=== PATIENT | male | born 1975 | race Two or more races ===

== ENCOUNTER 2016-07-09 13:15 | Emergency (ER) | payer SELFPAY ==
--- NOTE | 2016-07-09 14:16 | ER Document Report ---
ED Medical Screen (RME) - General Chief Complaint: Chest Congestion Stated Complaint: CHEST PAIN Time seen by provider: 14:15 Mode of Arrival: Wheelchair Information source: Patient TRAVEL OUTSIDE OF THE U.S. IN LAST 30 DAYS: No - HPI Patient complains to provider of: cough, SOB, chest tightness Onset: Other - Friday Quality of pain: Achy Severity: Moderate Pain Level: 3 Associated Symptoms: Body/muscle aches, Chills, Cough (nonproductive), Dizzy/ lightheaded, Shortness of breath Exacerbated by: Denies Relieved by: Denies Similar symptoms previously: Yes Recently seen / treated by doctor: No Notes: 07/09/16 14:16 Patient is a 40-year-old male who smokes cigarettes, presents to the emergency room complaining of chest tightness, cough, shortness of breath, symptoms of been present for the past 4 days, it is been quite sometime since he seen a primary care provider, he is not currently on any medications, patient has h/o HIV - Related Data Smoking: Cigarettes Allergies/Adverse Reactions: No Known Allergies Allergy (Verified 07/09/16 13:34) Past Medical History Renal/ Medical History: Denies: Hx Peritoneal Dialysis GI Medical History: Reports: Hx Hepatitis - Hep C Infectious Medical History: Reports: Hx Hepatitis - Hep C, Hx HIV Physical Exam - Vital signs Vitals: Temp Pulse Resp BP Pulse Ox 98.5 F 53 L 16 119/56 L 99 07/09/16 13:30 07/09/16 13:30 07/09/16 13:30 07/09/16 13:30 07/09/16 13:30 Course - Vital Signs Vital signs: Temp Pulse Resp BP Pulse Ox 98.5 F 53 L 16 119/56 L 99 07/09/16 13:30 07/09/16 13:30 07/09/16 13:30 07/09/16 13:30 07/09/16 13:30
[2016-07-09] MEDS ORDERED: IPRATROPIUM/ALBUTEROL 0.5-2.5 MG/3 ML AMPUL NEB ONE ×2 (14:17→16:53)
[2016-07-09 14:42] LABS: ABSOLUTE BASOPHILS # (AUTO) 0.1 10^3/uL (0.0-0.2); ABSOLUTE EOSINOPHILS # (AUTO) 0.1 10^3/uL (0.0-0.6); ABSOLUTE LYMPHOCYTES (AUTO) 2.3 10^3/uL (0.5-4.7); ABSOLUTE MONOCYTES (AUTO) 0.6 10^3/uL (0.1-1.4); ABSOLUTE NEUT (AUTO) 3.4 10^3/uL (1.7-8.2); BASOPHILS % (AUTO) 0.8 % (0-2); HEMATOCRIT 41.8 % (37.9-51.0); HEMOGLOBIN 14.3 g/dL (13.5-17.0); HGB HCT DIFFERENCE 1.1; LYMPHOCYTES % (AUTO) 35.5 % (13-45); MEAN CORPUSCULAR HEMOGLOBIN 31.6 pg (27.0-33.4); MEAN CORPUSCULAR HGB CONC 34.3 g/dL (32.0-36.0); MEAN CORPUSCULAR VOLUME 92 fl (80-97); MONOCYTES % (AUTO) 9.3 % (3-13); RED BLOOD COUNT 4.54 10^6/uL (4.35-5.55); RED CELL DISTRIBUTION WIDTH 12.9 % (11.5-14.0); SEGMENTED NEUTROPHILS % (AUTO) 52.4 % (42-78); WHITE BLOOD COUNT 6.5 10^3/uL (4.0-10.5)
[2016-07-09 15:04] LABS: ALANINE AMINOTRANSFERASE 32 U/L (21-72); ALBUMIN 4.7 g/dL (3.5-5.0); ALKALINE PHOSPHATASE 69 U/L (38-126); ANION GAP 13 (5-19); ASPARTATE AMINO TRANSFERASE 28 U/L (17-59); BILIRUBIN,DIRECT 0.3 mg/dL (0.0-0.4); BILIRUBIN,TOTAL 0.7 mg/dL (0.2-1.3); BLOOD UREA NITROGEN 15 mg/dL (7-20); CALCIUM 9.6 mg/dL (8.4-10.2); CARBON DIOXIDE 25 mmol/L (22-30); CHLORIDE 104 mmol/L (98-107); CREATINE KINASE 83 U/L (55-170); CREATININE RESULT 0.73 mg/dL (0.52-1.25); GLUCOSE 92 mg/dL (75-110); POTASSIUM 4.5 mmol/L (3.6-5.0); SODIUM 141.5 mmol/L (137-145); TOTAL PROTEIN 8.1 g/dL (6.3-8.2)
[2016-07-09 15:14] LABS: CREATINE KINASE MB 0.9 ng/mL (<4.55); TROPONIN I 0.032 ng/mL
[2016-07-09] MEDS ORDERED: PREDNISONE 20 MG TABLET PO ONE (16:53)
--- NOTE | 2016-07-09 16:59 | ER Document Report ---
ED Respiratory Problem - General Chief Complaint: Chest Congestion Stated Complaint: CHEST PAIN Mode of Arrival: Wheelchair Notes: The patient is a 40-year-old male, past medical history HIV (not on any meds, unknown counts), current tobacco and marijuana smoker, presents with 5 days of increasing dry cough and chest congestion. He said that he was working in a [employer] environment before the symptoms started. He received a DuoNeb at [facility] and says that he feels better already. He is only having chest pain when he coughs. Denies sputum, fevers, rash, nausea, vomiting, current chest pain, leg swelling, abdominal pain or hemoptysis. TRAVEL OUTSIDE OF THE [place].S[place] IN LAST 30 DAYS: No - Related Data Allergies/Adverse Reactions: No Known Allergies Allergy (Verified 07/09/16 13:34) Past Medical History - General Information source: Patient - Social History Smoking Status: Current Every Day Smoker Chew tobacco use (# tins/day): No Frequency of alcohol use: Occasional Drug Abuse: Marijuana Family History: Reviewed & Not Pertinent Patient has suicidal ideation: No Patient has homicidal ideation: No Renal/ Medical History: Denies: Hx Peritoneal Dialysis GI Medical History: Reports: Hx Hepatitis - Hep C Infectious Medical History: Reports: Hx Hepatitis - Hep C, Hx HIV Surgical Hx: Negative - Immunizations Hx Diphtheria, Pertussis, Tetanus Vaccination: No Review of Systems - Review of Systems Notes: REVIEW OF SYSTEMS: CONSTITUTIONAL: -fevers, -chills EENT: -eye pain, -difficulty swallowing, -nasal congestion CARDIOVASCULAR:-chest pain, -syncope. RESPIRATORY: +cough, +SOB GASTROINTESTINAL: -abdominal pain, -nausea, -vomiting, -diarrhea GENITOURINARY: -dysuria, -hematuria MUSCULOSKELETAL: -back pain, -neck pain SKIN: -rash or skin lesions. HEMATOLOGIC: -easy bruising or bleeding. LYMPHATIC: -swollen, enlarged glands. NEUROLOGICAL: -altered mental status or loss of consciousness, -headache, - neurologic symptoms PSYCHIATRIC: -anxiety, -depression. ALL OTHER SYSTEMS REVIEWED AND NEGATIVE. Physical Exam - Vital signs Vitals: Temp Pulse Resp BP Pulse Ox 98.5 F 53 L 16 119/56 L 99 07/09/16 13:30 07/09/16 13:30 07/09/16 13:30 07/09/16 13:30 07/09/16 13:30 - Notes Notes: PHYSICAL EXAMINATION: GENERAL: Well-appearing, well-nourished and in no acute distress. HEAD: Atraumatic, normocephalic. EYES: Pupils equal round and reactive to light, extraocular movements intact, sclera anicteric, conjunctiva are normal. ENT: nares patent, oropharynx clear without exudates. Moist mucous membranes. NECK: Normal range of motion, supple without lymphadenopathy LUNGS: No respiratory distress, mild end-expiratory wheezes HEART: Regular rate and rhythm without murmurs ABDOMEN: Soft, nontender, normoactive bowel sounds. No guarding, no rebound. No masses appreciated. EXTREMITIES: Normal range of motion, no pitting or edema. No cyanosis. NEUROLOGICAL: Cranial nerves grossly intact. Normal speech, normal gait. Normal sensory, motor, and reflex exams. PSYCH: Normal mood, normal affect. SKIN: Warm, Dry, normal turgor, no rashes or lesions noted. Course - Re-evaluation Re-evalutation: Patient appears well and is in no respiratory distress. His chest pain is only occurring when he coughs. EKG shows a peaked T-wave in V2, but his potassium is 4.5. Labs are unremarkable. Spoke to patient about smoking cessation. After DuoNebs and steroids, he feels much better. Will send home with 4 more days of steroids and an albuterol with instructions to follow-up with primary care physician. Given strict return precautions and he understands. - Vital Signs Vital signs: Temp Pulse Resp BP Pulse Ox 98.5 F 53 L 16 119/56 L 99 07/09/16 13:30 07/09/16 13:30 07/09/16 13:30 07/09/16 13:30 07/09/16 13:30 - Laboratory Result Diagrams: 07/09/16 14:12 07/09/16 14:12 - Diagnostic Test Radiology reviewed: Image reviewed, Reports reviewed Radiology results interpreted by me: CXR: NAD - EKG Interpretation by Me EKG shows normal: Sinus rhythm, Climax, Intervals, QRS Complexes, ST-T Waves Rate: Bradycardia Additional EKG results interpreted by me: Peaked T-wave in V2 Discharge - Discharge Clinical Impression: Bronchitis Condition: Good Disposition: HOME, SELF-CARE Additional Instructions: BRONCHITIS: You have acute bronchitis. This disease is an infection or inflammation of the air passageways in your lungs. Symptoms usually include cough, low grade fever, shortness of breath, and wheezing. The cough usually persists for a couple of weeks. Most cases of bronchitis get better without antibiotics. We prescribe antibiotics when we believe bacteria are damaging your airways, or if there's high risk the bronchitis will worsen into pneumonia. Increase your fluid intake. A cool mist humidifier may make your lungs more comfortable. An expectorant (cough medicine that loosens phlegm) can help. If you smoke, STOP!!! Recovery from bronchitis can be somewhat slow, but you should see improvement within a day or two. Repeated episodes of bronchitis may result in lung damage -- for example, chronic bronchitis, recurrent pneumonias, or emphysema. Call the doctor if you develop increasing fever, shortness of breath, chest pain, bloody sputum, or otherwise worsen. If you have not improved at all after several days, contact the physician. BRONCHITIS WITH BRONCHOSPASM (WHEEZING): You have bronchitis with bronchospasm (wheezing). Sometimes people develop wheezing with a chest cold. This occurs either because of an underlying tendency toward asthma or because the virus itself irritates the bronchial tubes. This irritation causes cough, shortness of breath, and wheezing. Emergency treatment of bronchospasm may include adrenaline shots or bronchodilator aerosol. You may feel lightheaded and have a rapid pulse for an hour or two. Rest and get plenty of fluids. At home, we'll treat you with a bronchodilator inhaler. Corticosteroids may be required for some patients. Until you recover, avoid chemical fumes, dusts, pollens, and exercising in very cold or dry air. If you smoke, stop now! Most cases of bronchitis get better without antibiotics. We prescribe antibiotics when we believe bacteria are damaging your airways, or if there's high risk the bronchitis will worsen into pneumonia. Increase your fluid intake. A cool mist humidifier may make your lungs more comfortable. An expectorant (cough medicine that loosens phlegm) can help. Repeated episodes of bronchitis and bronchospasm may result in lung damage -- for example, chronic bronchitis, recurrent pneumonias, or emphysema. If you develop a fever, increased wheezing, chest pain, or severe shortness of breath, you should contact the doctor immediately. INHALED BRONCHODILATORS: You have received a treatment of and/or prescription for an inhaled bronchodilator -- a medication which stimulates the airways in the lung to dilate. This improves the flow of air in asthma, bronchitis, and emphysema. These medicines have some similarity to adrenaline, and can cause similar side effects: shakiness, racing heart, and a sense of nervousness. These side effects decrease with time. Contact your doctor if these side effects are severe. Do not over-use the medicine. Too-frequent use of the inhaler may make it ineffective. Call your doctor if the inhaler is not controlling your symptoms at the prescribed doses. STEROID MEDICATION: You have been given an injection of or oral medicine of the cortisone/ steroid class. This medication is used to control inflammation or allergy. Eugenio t is usually only given for a short period of time, until the acute process subsides. There are usually no side effects from short-term use of cortisone-like medications. Some persons feel an increased sense of well-being and are not sleepy at bedtime. Long-term use of cortisone medications is best avoided, unless required for a severe condition. If your condition does not remit, or relapses after the course of corticosteroid medication, you should consult your physician. USE OF ACETAMINOPHEN (Tylenol): Acetaminophen may be taken for pain relief or fever control. It's much safer than aspirin, offering a wider range of "safe" dosages. It is safe during . Some brand names are Tylenol, Panadol, Datril, Anacin 3, Tempra, and Liquiprin. Acetaminophen can be repeated every four hours. The following are maximum recommended dosages: >89 pounds or adults 650 mg to 900 mg Acetaminophen can be repeated every four hours. Maximum dose not to exceed 4000 mg a day. SMOKING: If you smoke, you should stop smoking. The tar and chemicals in cigarette smoke are harmful. Smoking has been shown to cause: emphysema chronic bronchitis lung cancer mouth and throat cancer stomach and pancreas cancer premature aging defects In addition, smoking increases ear and lung infections in children of smokers. FOLLOW-UP CARE: If you have been referred to a physician for follow-up care, call the physician s office for an appointment as you were instructed or within the next two days. If you experience worsening or a significant change in your symptoms, notify the physician immediately or return to the Emergency Department at any time for re-evaluation. Prescriptions: Albuterol Sulfate [Proair HFA Inhalation Aerosol 8.5 gm MDI] 2 puff IH Q4H PRN # 1 mdi PRN Reason: Prednisone [Deltasone 20 mg Tablet] 3 tab PO DAILY 5 Days Referrals: RICHI BRAR MD [ACTIVE STAFF] - Follow up as needed
[2016-07-09 17:30] VITALS: BP 120/67
--- NOTE | 2016-07-09 19:38 | EKG REPORT ---
SEVERITY:- OTHERWISE NORMAL ECG - SINUS BRADYCARDIA : Confirmed by: Geraldine Torres MD 09-Jul-2016 19:37:03
== END 2016-07-09 17:38 | disposition home or self-care (01) ==
LOC: ER 13:15
DX: J40 Bronchitis, not specified as acute or chronic (principal); R05 Cough; R09.89 Other specified symptoms and signs involving the circulatory and respiratory systems; R07.89 Other chest pain; R00.1 Bradycardia, unspecified; F17.200 Nicotine dependence, unspecified, uncomplicated; Z21 Asymptomatic human immunodeficiency virus [HIV] infection status
CPT/HCPCS: 93005; 94640 ×2; 99284; 36415; 87040; 82553; 82550; 85025; 80053; 84484; 71020; 93010; J7512; J7620

== ENCOUNTER 2016-09-16 00:08 | Emergency (ER) | payer SELFPAY ==
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
[2016-09-16 02:18] LABS: ABSOLUTE EOSINOPHILS # (AUTO) 0.1 10^3/uL (0.0-0.6); ABSOLUTE LYMPHOCYTES (AUTO) 1.8 10^3/uL (0.5-4.7); ABSOLUTE MONOCYTES (AUTO) 0.7 10^3/uL (0.1-1.4); ABSOLUTE NEUT (AUTO) 4.7 10^3/uL (1.7-8.2); BASOPHILS % (AUTO) 0.4 % (0-2); HEMATOCRIT 40.7 % (37.9-51.0); HEMOGLOBIN 13.7 g/dL (13.5-17.0); HGB HCT DIFFERENCE 0.4; LYMPHOCYTES % (AUTO) 24.7 % (13-45); MEAN CORPUSCULAR HEMOGLOBIN 30.9 pg (27.0-33.4); MEAN CORPUSCULAR HGB CONC 33.6 g/dL (32.0-36.0); MEAN CORPUSCULAR VOLUME 92 fl (80-97); MONOCYTES % (AUTO) 9.8 % (3-13); RED BLOOD COUNT 4.43 10^6/uL (4.35-5.55); RED CELL DISTRIBUTION WIDTH 12.9 % (11.5-14.0); SEGMENTED NEUTROPHILS % (AUTO) 64.1 % (42-78); WHITE BLOOD COUNT 7.4 10^3/uL (4.0-10.5)
[2016-09-16 02:22] LABS: ALANINE AMINOTRANSFERASE 31 U/L (21-72); ALBUMIN 4.7 g/dL (3.5-5.0); ALKALINE PHOSPHATASE 86 U/L (38-126); ANION GAP 13 (5-19); ASPARTATE AMINO TRANSFERASE 28 U/L (17-59); BILIRUBIN,DIRECT 0.2 mg/dL (0.0-0.4); BILIRUBIN,TOTAL 0.7 mg/dL (0.2-1.3); BLOOD UREA NITROGEN 30 mg/dL (7-20); CALCIUM 9.5 mg/dL (8.4-10.2); CARBON DIOXIDE 24 mmol/L (22-30); CHLORIDE 101 mmol/L (98-107); CREATININE RESULT 1.01 mg/dL (0.52-1.25); GLUCOSE 90 mg/dL (75-110); POTASSIUM 4.5 mmol/L (3.6-5.0); SODIUM 137.6 mmol/L (137-145); TOTAL PROTEIN 8.7 g/dL (6.3-8.2)
[2016-09-16 02:26] LABS: ALCOHOL < 10 mg/dL (NONE DETECTED)
[2016-09-16 05:39] LABS: URINE BARBITURATES SCREEN NEGATIVE; URINE METHADONE SCREEN NEGATIVE; URINE OPIATES LOW UNCONFIRMED POSITIVE; URINE PHENCYCLIDINE SCREEN NEGATIVE
[2016-09-16 05:40] LABS: APPEARANCE,URINE SLIGHTLY-CLOUDY; BILIRUBIN,URINE NEGATIVE (NEGATIVE); GLUCOSE, URINE NEGATIVE (NEGATIVE); KETONES,URINE NEGATIVE (NEGATIVE); LEUKOCYTE ESTERASE,URINE NEGATIVE (NEGATIVE); NITRITE,URINE NEGATIVE (NEGATIVE); PROTEIN,URINE NEGATIVE (NEGATIVE); URINE SPECIFIC GRAVITY 1.031
--- NOTE | 2016-09-16 08:42 | EKG REPORT ---
SEVERITY:- OTHERWISE NORMAL ECG - SINUS RHYTHM BORDERLINE LEFT AXIS DEVIATION : Confirmed by: Laverne Salguero 16-Sep-2016 08:41:45
--- NOTE | 2016-09-16 12:36 | ER Document Report ---
ED Psych Disorder / Suicide - General Chief Complaint: Drug Abuse Stated Complaint: POSSIBLE VOLUNTARY COMMITMENT Time Seen by Provider: 09/16/16 01:17 Mode of Arrival: Ambulatory Information source: Patient, Relative, H Records Cannot obtain history due to: Altered mental status TRAVEL OUTSIDE OF THE U.S[place] IN LAST 30 DAYS: No - HPI Patient complains to provider of: Other - drug abuse/detox Onset: Just prior to arrival Suicide Risk Factors: Frightened friends/family, Substance abuse Normal mood: Yes Associated symptoms: Normal affect Similar symptoms previously: Yes - pt reports a long hx of SA Recently seen / treated by doctor: No Notes: Patient is a 40 year old male who presented via his last night requesting assistance with detox/substance abuse. Patient reportedly injects heroin, and did so [employer]. Patient this morning is easy to arouse, but struggles to remain awake and engage in conversation. Patient is adamant that he is not suicidal. Will attempt again at a later time. @1220 Patient is now awake and alert. He states he has been doing heroin and etoh daily. Patient acknowledges that his heroin use has increased over the past few months. Patient states he does not do drugs to . Patient states he does not want to , which is why he is seeking detox. Patient states the heroin was a problem in the past, but he did achieve sobriety without the use of detox or SA programs. Patient states his grandparent , and he relapsed. Discussed with patient that detox in [place] is largely a voluntary process. Patient states he does not have an ID, nor a drivers license. Discussed with patient treatment options, to include contacting mobile crisis to request assistance with detox, or walking in directly to [facility]. Patient states he will go directly to [facility]. Patient states he feels physically sick, likely from withdrawal, but again denies suicidal ideations. Patient is now A&O. Mood is euthymic with normal affect. Patient denies suicidal/homicidal ideations, intent, plan, or means. Patient denies A/V H; delusions not noted. Though processes were guarded, but organized. Conversational speech was WNL. Intellectual abilities were estimated within average range. Attention and focus were poor. Insight, judgment, and impulse control were poor to fair. Opioid Use Disorder, per history Alcohol Use Disorder, per history Cannabis Use Disorder, per history Benzodiazapine Use Disorder, per history Cocaine Use Disorder, per history Patient is psychiatrically cleared and recommended for discharge to voluntarily pursue detox. Patient states he prefers to walk in to [facility]. Patient reports he does not use drugs to commit suicide. Patient denies suicidal ideations, intent, plan, or means. Patient denies any prior suicide attempts. I consulted with Dr. Jameson in regards to the care and management of this patient. - Related Data Allergies/Adverse Reactions: No Known Allergies Allergy (Verified 07/09/16 13:34) Past Medical History - General Information source: Patient - Social History Smoking Status: Current Every Day Smoker Cigarette use (# per day): Yes Smoking Education Provided: Yes Frequency of alcohol use: Heavy Drug Abuse: Heroin, Marijuana, Prescription drugs Family History: Reviewed & Not Pertinent Patient has suicidal ideation: No Patient has homicidal ideation: No Renal/ Medical History: Denies: Hx Peritoneal Dialysis GI Medical History: Reports: Hx Hepatitis - Hep C Infectious Medical History: Reports: Hx Hepatitis - Hep C, Hx HIV Past Surgical History: Reports: Other - head injury - Immunizations Hx Diphtheria, Pertussis, Tetanus Vaccination: No Physical Exam - Vital signs Vitals: Temp Pulse Resp BP Pulse Ox 98.2 F 87 16 109/64 97 09/16/16 00:17 09/16/16 00:17 09/16/16 00:17 09/16/16 00:17 09/16/16 00:17 Course - Vital Signs Vital signs: Temp Pulse Resp BP Pulse Ox 98.2 F 87 12 121/66 98 09/16/16 00:17 09/16/16 00:17 09/16/16 11:01 09/16/16 11:00 09/16/16 11:01 - Laboratory Result Diagrams: 09/16/16 01:55 09/16/16 01:55 Laboratory results interpreted by me: 09/16/16 09/16/16 01:55 04:35 BUN 30 H Total Protein 8.7 H Urine Urobilinogen 2.0 H Salicylates < 1.0 L Acetaminophen < 10 L Discharge - Discharge Clinical Impression: Polysubstance (excluding opioids) dependence, Opioid abuse Condition: Stable Disposition: HOME, SELF-CARE Additional Instructions: Opioid Abuse Ampetamine Abuse Alcohol Abuse Please follow through with pursuing detox. As discussed, detox and SA services in [place] is largely a voluntary process. Please pursue treatment via [facility]. You have been provided a list of resources to assist you in doing so. Referrals: [facility] [Provider Group] - 09/16/16 (Please walk in and discuss detox services)
--- NOTE | 2016-09-16 12:48 | ER Document Report ---
Doctor's Note Notes: 09/16/16 12:47 It has been sleeping comfortably on stretcher without complaints, he has been seen and evaluated by mental health coordinator who recommends discharge with outpatient therapy, patient denies suicidal or homicidal ideations, his main complaint is substance abuse, his urinalysis is positive for opiates, benzos, cocaine and marijuana, otherwise his labs and vital signs have been stable, he will be discharged with recommendations for outpatient substance abuse therapy, advised to follow-up with a primary care provider as well or return if symptoms worsen, patient acknowledges understanding and agreement with this plan Discharge - Discharge Clinical Impression: Polysubstance (excluding opioids) dependence, Opioid abuse Additional Instructions: Opioid Abuse Ampetamine Abuse Alcohol Abuse Please follow through with pursuing detox. As discussed, detox and SA services in [place] is largely a voluntary process. Please pursue treatment via [facility]. You have been provided a list of resources to assist you in doing so. Referrals: [facility] [Provider Group] - 09/16/16 (Please walk in and discuss detox services)
[2016-09-16 13:24] VITALS: BP 126/80
== END 2016-09-16 13:26 | disposition home or self-care (01) ==
LOC: ER 00:08
DX: F19.20 Other psychoactive substance dependence, uncomplicated (principal); F11.10 Opioid abuse, uncomplicated; Z21 Asymptomatic human immunodeficiency virus [HIV] infection status; B19.20 Unspecified viral hepatitis C without hepatic coma; F17.210 Nicotine dependence, cigarettes, uncomplicated
CPT/HCPCS: 36415; 80053; 80307; 81001; 85025; 93005; 93010; 99284